=== PATIENT | female | born 1970 | race Two or more races ===

== ENCOUNTER 2018-08-31 14:09 | Emergency (ER) | payer OTHER ==
[~2018-08-31] VITALS: Ht 162.6 cm; Wt 115.2 kg
[2018-08-31] MEDS ORDERED: LANTUS SOL100 UNIT/1 (14:45)
[2018-08-31] MEDS ORDERED: SYNTHROID50 MCG (14:46)
[2018-08-31] MEDS ORDERED: HUMALOG100 UNIT/1 (14:46)
[2018-08-31] MEDS ORDERED: PRINIVIL5 MG (14:47)
[2018-08-31] MEDS ORDERED: METOPROLOL SUCC50 MG (14:47)
[2018-08-31] MEDS ORDERED: PENTOXIFYLLINE400 MG PO (14:52)
[2018-08-31] MEDS ORDERED: ATORVASTATIN CA40 MG PO (14:53)
[2018-08-31] MEDS ORDERED: CANDESARTAN CIL32 MG PO (14:53)
[2018-08-31] MEDS ORDERED: FUROSEMIDE40 MG PO (14:54)
== END 2018-08-31 19:58 | disposition home or self-care (01) ==
LOC: ER 14:09
DX: S20.212A Contusion of left front wall of thorax, initial encounter (principal); S20.211A Contusion of right front wall of thorax, initial encounter; W18.39XA Other fall on same level, initial encounter; Y93.89 Activity, other specified; Y92.59 Other trade areas as the place of occurrence of the external cause; Y99.8 Other external cause status; E11.65 Type 2 diabetes mellitus with hyperglycemia